=== PATIENT | male | born 1950 | race Caucasian/White ===

== ENCOUNTER 2021-06-04 14:13 | Emergency (ER) | payer MEDICARE ==
[~2021-06-04] VITALS: Ht 172.7 cm; Wt 72.6 kg
[2021-06-04] MEDS ORDERED: HYDROCODON-ACE1 EA11 PO ×5 (16:10→17:36)
[2021-06-04 16:25] VITALS: BP 130/75
== END 2021-06-04 16:30 | disposition home or self-care (01) ==
LOC: FSED 14:22
DX: M25.572 Pain in left ankle and joints of left foot (principal); S93.402A Sprain of unspecified ligament of left ankle, initial encounter; X50.1XXA Overexertion from prolonged static or awkward postures, initial encounter; Y92.008 Other place in unspecified non-institutional (private) residence as the place of occurrence of the external cause; I10 Essential (primary) hypertension; I50.9 Heart failure, unspecified; I25.10 Atherosclerotic heart disease of native coronary artery without angina pectoris; Z95.1 Presence of aortocoronary bypass graft; Z95.810 Presence of automatic (implantable) cardiac defibrillator
CPT/HCPCS: 99283

== ENCOUNTER 2021-06-26 15:48 | Emergency (ER) | payer MEDICARE ==
[~2021-06-26] VITALS: Ht 172.7 cm; Wt 72.6 kg
[~2021-06-26 15:48] MED LIST: HYDROCODON-ACE1 EA11 PO
[2021-06-26] MEDS ORDERED: ONDANSETRON ODT4 MG PO (16:19)
[2021-06-26] MEDS ORDERED: ACETAMINOPHEN-1 EAC4 PO (16:19)
[2021-06-26] MEDS ORDERED: IBUPROFEN IB200 MG PO (16:19)
== END 2021-06-26 16:32 | disposition home or self-care (01) ==
LOC: FSED 16:18
DX: M25.572 Pain in left ankle and joints of left foot (principal); S93.402D Sprain of unspecified ligament of left ankle, subsequent encounter; I10 Essential (primary) hypertension; I25.10 Atherosclerotic heart disease of native coronary artery without angina pectoris; I50.9 Heart failure, unspecified; Z95.1 Presence of aortocoronary bypass graft; Z95.810 Presence of automatic (implantable) cardiac defibrillator
CPT/HCPCS: 99282